=== PATIENT | female | born 1940 | race Caucasian/White ===

== ENCOUNTER → 2023-11-03 16:26 | Outpatient (REF) | payer MEDICARE, SELFPAY | LOC: RAD 16:26 | PROVIDERS: ATTENDING PHYSICIAN Nurse Practitioner Family | DX: M25.552 Pain in left hip (principal) | CPT/HCPCS: 73501 ==

== ENCOUNTER → 2024-02-13 17:13 | Outpatient (REF) | payer MEDICARE, SELFPAY | LOC: RAD 17:13 | PROVIDERS: ATTENDING PHYSICIAN Nurse Practitioner Family | DX: M25.511 Pain in right shoulder (principal) | CPT/HCPCS: 73030 ==

== ENCOUNTER → 2024-10-31 14:41 | Outpatient (REF) | payer MEDICARE, SELFPAY | LOC: RAD 14:41 | PROVIDERS: ATTENDING PHYSICIAN Nurse Practitioner Family; FAMILY PHYSICIAN Internal Medicine | DX: R10.84 Generalized abdominal pain (principal) | CPT/HCPCS: 76700 ==

== ENCOUNTER → 2024-12-05 18:48 | Outpatient (REF) | payer MEDICARE, SELFPAY | LOC: WDC 18:48 | PROVIDERS: ATTENDING PHYSICIAN Internal Medicine | DX: Z12.31 Encounter for screening mammogram for malignant neoplasm of breast (principal) | CPT/HCPCS: 77063; 77067 ==

== ENCOUNTER → 2025-01-16 13:29 | Outpatient (REF) | payer MEDICARE, SELFPAY | LOC: RCS 13:29 | PROVIDERS: ATTENDING PHYSICIAN Internal Medicine Cardiovascular Disease | DX: R06.02 Shortness of breath (principal) | CPT/HCPCS: 93306 ==

== ENCOUNTER → 2025-01-23 15:00 | Outpatient (REF) | payer MEDICARE, SELFPAY | LOC: RAD 15:00 | PROVIDERS: ATTENDING PHYSICIAN Nurse Practitioner Family; FAMILY PHYSICIAN Internal Medicine | DX: M25.512 Pain in left shoulder (principal) | CPT/HCPCS: 73030 ==

== ENCOUNTER → 2025-04-11 10:47 | Outpatient (REF) | payer MEDICARE, SELFPAY | LOC: RAD 10:47 | PROVIDERS: ATTENDING PHYSICIAN Internal Medicine | DX: R05.1 Acute cough (principal) | CPT/HCPCS: 71046 ==